=== PATIENT | female | born 1965 | race Caucasian/White ===

== ENCOUNTER 2018-02-14 15:38 | Emergency (ER) | payer SELFPAY ==
[~2018-02-14] VITALS: Ht 162.6 cm; Wt 86.0 kg
[2018-02-14 17:23] LABS: EOSINOPHILS % 3.9 % (0.0-5.0); HEMATOCRIT. 43.5 % (36.0-48.0); HEMOGLOBIN. 14.5 g/dL (12.0-16.0); LYMPHOCYTES % 33.2 % (20.0-50.0); MEAN CORPUSCULAR VOLUME 87.3 fL (81.0-99.0); MEAN PLATELET VOLUME 9.1 fl (7.4-10.4); MONOCYTES % 6.7 % (2.0-8.0); NEUTROPHILS % 55.2 % (40.0-76.0); PLATELET 224 x1000/uL (130-400); RED BLOOD CELL COUNT 4.98 mill/uL (4.2-5.4); RED CELL DISTRIBUTION WIDTH 15.2 % (11.6-14.6)
[2018-02-14 17:27] LABS: CHLORIDE 106 mEq/L (98-107); PROTHROMBIN TIME 10.4 sec (9.1-11.1)
[2018-02-14] MEDS ORDERED: LORAZEPAM 1MG TABLET PO ONE (18:00)
[2018-02-14] MEDS ORDERED: ACETAMINOPHEN 325MG TABLET PO ONE (18:00)
[2018-02-14 20:39] VITALS: BP 130/79
== END 2018-02-14 21:02 | disposition home or self-care (01) ==
LOC: ER 17:23
DX: R51 Headache (principal); R06.00 Dyspnea, unspecified; R00.2 Palpitations; R20.0 Anesthesia of skin
CPT/HCPCS: 36415; 71045; 80053; 84484; 85025; 85610; 93005; 99285